=== PATIENT | male | born 1950 | race Asian ===

== ENCOUNTER 2019-09-15 16:18 | Emergency (ER) | payer OTHER ==
[~2019-09-15] VITALS: Ht 167.6 cm; Wt 77.1 kg
[2019-09-15] MEDS ORDERED: NORCO 5-325 TA1 EAC1 PO (17:56)
[2019-09-15 18:17] VITALS: BP 152/64
== END 2019-09-15 18:18 | disposition home or self-care (01) ==
LOC: ER 16:18
DX: S20.211A Contusion of right front wall of thorax, initial encounter (principal); M25.561 Pain in right knee; M25.562 Pain in left knee; W01.0XXA Fall on same level from slipping, tripping and stumbling without subsequent striking against object, initial encounter; Y93.89 Activity, other specified; Y92.89 Other specified places as the place of occurrence of the external cause; Y99.8 Other external cause status